=== PATIENT | female | born 1940 | race Caucasian/White ===

== ENCOUNTER 2020-08-08 14:29 | Outpatient (CLI) | payer MEDICARE | END 2020-08-08 14:30 | disposition home or self-care (01) | LOC: CSHMAMMO 14:29 | PROVIDERS: ATTEND Internal Medicine Endocrinology, Diabetes & Metabolism | DX: M81.0 Age-related osteoporosis without current pathological fracture (principal) | CPT/HCPCS: 77080 ==

== ENCOUNTER 2022-01-06 14:28 | Outpatient (CLI) | payer MEDICARE | END 2022-01-06 14:29 | disposition home or self-care (01) | LOC: CSHMAMMO 14:28 | PROVIDERS: ATTEND Internal Medicine | DX: Z12.31 Encounter for screening mammogram for malignant neoplasm of breast (principal) | CPT/HCPCS: 77063; 77067 ==

== ENCOUNTER 2022-02-20 12:34 | Outpatient (CLI) | payer MEDICARE | END 2022-02-20 12:35 | disposition home or self-care (01) | LOC: CSHMAMMO 12:34 | PROVIDERS: ATTEND Internal Medicine Endocrinology, Diabetes & Metabolism | DX: M81.0 Age-related osteoporosis without current pathological fracture (principal); M85.852 Other specified disorders of bone density and structure, left thigh | CPT/HCPCS: 77080 ==

== ENCOUNTER 2023-01-07 14:48 | Outpatient (CLI) | payer MEDICARE | END 2023-01-07 14:49 | disposition home or self-care (01) | LOC: CSHMAMMO 14:48 | PROVIDERS: ATTEND Internal Medicine | DX: Z12.31 Encounter for screening mammogram for malignant neoplasm of breast (principal) | CPT/HCPCS: 77063; 77067 ==

== ENCOUNTER 2023-10-26 13:54 | Outpatient (CLI) | payer MEDICARE | END 2023-10-26 13:55 | disposition home or self-care (01) | LOC: CSHMAMMO 13:54 | PROVIDERS: ATTEND Internal Medicine Endocrinology, Diabetes & Metabolism | DX: M81.0 Age-related osteoporosis without current pathological fracture (principal); M85.851 Other specified disorders of bone density and structure, right thigh | CPT/HCPCS: 77080 ==

== ENCOUNTER 2025-01-11 09:57 | Outpatient (CLI) | payer MEDICARE | END 2025-01-11 09:58 | disposition home or self-care (01) | LOC: CSHMAMMO 09:57 | PROVIDERS: ATTEND Internal Medicine | DX: Z12.31 Encounter for screening mammogram for malignant neoplasm of breast (principal); Z80.3 Family history of malignant neoplasm of breast | CPT/HCPCS: 77063; 77067 ==

== ENCOUNTER 2025-01-15 16:26 | Emergency (ER) | payer MEDICARE ==
[2025-01-15] MEDS ORDERED: Lidocaine 1% w/Epinephrine 1:200K 30 ML VIAL ONE (16:54)
[2025-01-15] MEDS ORDERED: Bacitracin 1 PK ONE (18:28)
== END 2025-01-15 18:16 | disposition home or self-care (01) ==
LOC: CSHERS 16:26
DX: S81.812A Laceration without foreign body, left lower leg, initial encounter (principal); S09.90XA Unspecified injury of head, initial encounter; I48.91 Unspecified atrial fibrillation; W19.XXXA Unspecified fall, initial encounter
CPT/HCPCS: 12005; 70450

== ENCOUNTER 2025-04-23 01:01 | Emergency (ER) | payer MEDICARE ==
[2025-04-23 03:18] LABS: #Basophils 0.03 10x3/uL (0.0-0.2); #Eosinophils 0.04 10x3/uL (0.0-0.5); #Monocytes 0.48 10x3/uL (0.0-1.1); #Neutrophils 4.67 10x3/uL (1.5-8.4); %Basophils 0.4 % (0.0-2.0); %Eosinophils 0.6 % (0.0-6.0); %Lymphocytes 22.8 % (18.0-47.0); %Monocytes 7.1 % (0.0-10.0); %Neutrophils 68.7 % (40.0-75.0); Hematocrit 41.0 % (34.9-44.5); Hemoglobin 13.8 g/dL (12.0-15.5); Mean Corpuscular Hemoglobin 32.9 pg (27.0-33.0); Mean Corpuscular Volume 97.9 fL (81.6-98.3); Platelet Count 189 10x3/uL (150-450); Red Blood Cell (RBC) Count 4.19 10x6/uL (3.90-5.03); White Blood Cell (WBC) Count 6.80 10x3/uL (3.5-10.5)
[2025-04-23 03:29] LABS: INR-International Normal Ratio 1.0; PTT 27.4 sec (22.0-33.0); Prothrombin Time 10.8 sec (9.5-12.1)
[2025-04-23 03:33] LABS: ALT (SGPT) 8 U/L (Less than 34); AST (SGOT) 17 U/L (11-34); Albumin 4.0 g/dL (3.1-4.5); Alkaline Phosphatase 35 U/L (40-110); Anion Gap 15 mmol/L (10-20); BUN (Urea Nitrogen) 19 mg/dL (9.8-20.1); Bilirubin, Total 0.8 mg/dL (0.3-1.2); Calc. Creatinine Clearance 0 mL/min (70-130); Calcium 8.6 mg/dL (7.8-10.44); Carbon Dioxide 23 mmol/L (23-31); Chloride 109 mmol/L (98-107); Globulin 2.4 g/dL (2.4-3.5); Glucose 96 mg/dL (83-110); Potassium 4.5 mmol/L (3.5-5.1); Sodium 142 mmol/L (136-145)
[2025-04-23] MEDS ORDERED: Iopamidol 300 61% 100 ML VIAL FS ONE (10:46)
== END 2025-04-23 05:10 | disposition home or self-care (01) ==
LOC: CSHERS 01:01
DX: S32.019A Unspecified fracture of first lumbar vertebra, initial encounter for closed fracture (principal); S32.029A Unspecified fracture of second lumbar vertebra, initial encounter for closed fracture; I48.91 Unspecified atrial fibrillation; Z79.01 Long term (current) use of anticoagulants; Z79.82 Long term (current) use of aspirin; W18.30XA Fall on same level, unspecified, initial encounter
CPT/HCPCS: 71100; 71260; 74177; 80053; 85025; 85610; 85730; J2270; Q9967; 96374